=== PATIENT | male | born 1995 | race Caucasian/White ===

== ENCOUNTER 2022-02-08 18:15 | Inpatient (IN) | payer BC, OTHER, SELFPAY ==
--- NOTE | ~2022-02-08 | US_ITS ---
EXAMINATION: US abdomen limited DATE: 02/10/2022 13:15 INDICATION: Abnormal liver function tests. TECHNIQUE: Multiple grayscale and Doppler ultrasound images of the abdomen were obtained. COMPARISON: CT abdomen and pelvis 02/08/2022 FINDINGS: The pancreas is obscured by bowel gas. The liver is normal without focal lesion. No liver s urface nodularity. The gallbladder is normal in size. No gallstones or gallbladder wall thickening. T here was no sonographic Raymond sign. The common duct is normal and measures 3 mm. IMPRESSION: 1. Normal right upper quadrant ultrasound. Reviewed, dictated and finalized at location A.
--- NOTE | ~2022-02-08 | CT_ITS ---
EXAMINATION: CT abdomen pelvis w con DATE: 02/08/2022 20:25 INDICATION: right lower abdominal pain TECHNIQUE: Computed tomography (CT) of the abdomen and pelvis was performed with 100 mL Omnipaque-350 intravenous contrast. Automated exposure control and iterative reconstruction technique were employe d. The dose-length product was 528.65 mGy-cm. COMPARISON: None. FINDINGS: Lower thorax: Unremarkable Liver: Normal. Biliary/Gallbladder: Gallbladder is normal. No bile duct dilation. Pancreas: No mass or duct dilation. Spleen: Normal. Adrenals:No mass. Kidneys: No suspicious mass GI tract: No small or large bowel dilation. 1.5 cm saccular structure extending off the distal ileum, just proximal to the ileocecal valve, with significant surrounding inflammatory change and adjacent bubbles of gas (microperforation). Multiple adjacent subcentimeter right lower quadrant lymph nodes. Normal appendix. Mesentery/Peritoneum: No ascites, mass, or free air. Retroperitoneum: No mass. Pelvis: Pelvic organs are within normal limits. Soft Tissues: Soft tissues and body wall unremarkable. Bones: No acute osseous finding. IMPRESSION: Small bowel diverticulitis with evidence of contained perforation. Reviewed, dictated and finalized at location K.
[2022-02-08 18:28] VITALS: BP 147/92; PULSE 130; RESP 18; TEMP 36.9; O2SAT 100
--- NOTE | 2022-02-08 19:10 | ED.ABDPAIN ---
HPI - Abdominal Pain General Chief Complaint: Abdominal Pain Stated Complaint: RLQ pain Time Seen by Provider: 02/08/22 18:53 Source: patient and RN notes reviewed Mode of arrival: ambulatory Limitations: no limitations History of Present Illness HPI narrative: This is a 36 year old male who presents for evaluation of right lower abdominal pain. He developed mid abdominal pain this morning and it has been migrating to right lower abdomen throughout the day. He has associated nausea and anorexia. He also reports low grade temperature of 99 F today. He denies dysuria, hematuria, scrotal pain or swelling. He has not taken any medication for his pain, and it rates pain 8/10. MD elicited complaint: abdominal pain Pain Consistency: constant Location: RLQ Severity: severe Relieving factors: nothing Associated symptoms: nausea Related Data Allergies Allergy/AdvReac Type Severity Reaction Status Date / Time No Known Allergies Allergy Verified 02/08/22 19:14 Review of Systems Review of Systems: All systems reviewed & are unremarkable except as noted in HPI and below Constitutional: Constitutional: Denies chills, Denies fatigue and Denies fever(s) ENT: Denies nasal congestion and Denies sore throat Cardiovascular: Cardiovascular: Denies chest pain Gastrointestinal: Gastrointestinal: Reports abdominal pain, Denies bloating, Reports nausea and Denies vomiting Genitourinary: Genitourinary: Denies hematuria PMFSH Past Medical History Medical History (Updated 02/08/22 @ 21:48 by Debra Everett MD) SVT (supraventricular tachycardia) Surgical History Surgical History (Updated 02/08/22 @ 19:10 by Debra Everett MD) History of cardiac radiofrequency ablation Social History Social History (Updated 02/08/22 @ 19:10 by Debra Everett MD) Tobacco type: e-cigarettes/vaping Exam Const: General: no acute distress and alert Nutritional Appearance: well nourished Orientation/consciousness: patient oriented x3 HENMT: Head: normal to inspection Eyes: EOM: EOMs intact bilaterally Chest: Chest palpation & inspection: normal inspection of the chest Resp: Effort & Inspection: normal respiratory effort Auscultation: clear to auscultation bilaterally Cardio: Rate: regular rate Rhythm: regular rhythm Heart sounds: no murmurs GI: GI Palp: Yes Soft to palpation, Yes Tenderness to palpation present (GI) (RLQ, + rovsing), No Guarding due to palpation present (GI) and No Rigid due to palpation Auscultation: normal bowel sounds Back/Spine/Pelvis: Back: no CVA tenderness Skin: General skin exam: normal color Rashes: no rashes Wounds: no wounds Neuro: General: patient oriented x3, moves all extremities and CN's II-XI intact bilaterally Cranial nerves: Yes Nystagmus not present Extrem: General: normal to inspection Psych: Mental Status: mental status grossly normal Affect: normal affect Attitude: cooperative Course Reevaluation(s) Reevaluation #1: I have discussed findings with patient and the plan to admit for IV antibiotics with surgical consult. Date: 02/08/22 Time: 21:47 Consultations Consultation #1: I discussed case with Dr. Pickard and he agrees to consult on patient. Date: 02/08/22 Time: 20:48 Consultation #2: I discussed case with DR. Young and she accepts patient to medical service. Date: 02/08/22 Time: 20:50 Vital Signs Vital signs: Vital Signs Temperature 98.4 F 02/08/22 18:28 Pulse Rate 130 H 02/08/22 18:28 Respiratory Rate 18 02/08/22 18:28 Blood Pressure 147/92 H 02/08/22 18:28 Pulse Oximetry 100 02/08/22 18:28 Oxygen Delivery Room Air 02/08/22 18:28 Temperature 98.4 F 02/08/22 18:28 Pulse Rate 116 H 02/08/22 21:23 Respiratory Rate 18 02/08/22 21:23 Blood Pressure 132/70 02/08/22 21:23 Pulse Oximetry 98 02/08/22 21:23 Oxygen Delivery Room Air 02/08/22 18:28 MDM - Abdominal Pain Lab Data Result diagrams: 02/08
[2022-02-08] MEDS: MORPHINE SULFATE (*CRX) 4 MG/ML INJ IV PUSH (19:15)
[2022-02-08] MEDS: ONDANSETRON INJ 4 MG/2 ML VIAL IV PUSH (19:15)
[2022-02-08] MEDS: LACTATED RINGERS 1,000 ML 999 ML IV CONT (19:15)
[2022-02-08 19:29] LABS: Basophils Percent Auto 0.1 % (0.2-1.2); Eosinophils Percent Auto 0.1 % (0-4.4); Hematocrit 48.7 % (42.0-52.0); Hemoglobin 16.6 g/dL (14.0-18.0); Immature Granulocyte Absolute 0.06 K/mm3 (0.00-0.031); Immature Granulocyte Percent A 0.4 % (0-0.5); Lymphocytes Absolute Auto 1.13 K/mm3 (0.9-3.2); Lymphocytes Percent Auto 7.1 % (18.3-44.2); Mean Corpuscular HGB Conc 34.1 g/dl (32-36); Mean Corpuscular Hemoglobin 30.2 pg (26-34); Mean Corpuscular Volume 88.5 fl (80-100); Mean Platelet Volume 9.2 fl (7.4-10.4); Monocytes Absolute Auto 1.1 K/mm3 (0.1-0.6); Monocytes Percent Auto 6.6 % (2.6-8.5); Neutrophils Absolute Auto 13.7 K/mm3 (1.3-6.7); Neutrophils Percent Auto 85.7 % (45.5-73.1); Platelet Count Result 233 k/mm3 (150-375); Red Cell Distribution Width 12.3 % (11.5-14.5)
[2022-02-08 19:38] LABS: Alanine Aminotransferase 124 U/L (6-50); Albumin Level 5.3 g/dL (3.5-5.1); Alkaline Phosphatase 120 U/L (38-126); Anion Gap 13 mmol/L (8-16); Aspartate Amino Transferase 381 U/L (17-59); Bilirubin,Total 0.8 mg/dL (0.2-1.3); Blood Urea Nitrogen 10 mg/dL (9-20); Calcium 9.6 mg/dL (8.4-10.2); Carbon Dioxide 27 mmol/L (22-30); Chloride 99 mmol/L (98-107); Estimated CRCL calculation 90 ml/min; Estimated Glomerular Filt Rate > 60; Glucose 102 mg/dL (65-110); Lipase 23 U/L (23-300); Potassium 3.9 mmol/L (3.4-5.0); Sodium 139 mmol/L (137-145)
[2022-02-08 19:56] LABS: Add Urine Microscopic? YES; Appearance Urine Clear (Clear); Bilirubin Urine Negative (Negative); Blood Urine 3+ (Negative); Color Urine Yellow (Yellow); Glucose Urine UA Negative (Negative); Ketones Urine 2+ mg/dL (Negative); Leukocyte Esterase Ur Negative LEU/UL (Negative); Mucus Urine Rare /lpf; Nitrate Urine Negative (Negative); Protein Urine 1+ mg/dL (Negative); RBC Urine 0-2 /hpf (0-2); Specific Grav Ur 1.024 (1.001-1.035); Squamous Epithelial Cell Urine Rare /hpf (Few); Urobilinogen Urine Negative mg/dL (<2.0); WBC Urine 0-3 /hpf
--- NOTE | 2022-02-08 20:51 | PM.IMHP ---
H&P: HPI History of Present Illness Date/Time: 02/08/22 20:51 Chief Complaint: abdominal pain Narrative: 26-year-old male with no significant past medical history presents to the emergency room for sudden onset of abdominal pain localized to the right lower quadrant with radiation to left lower quadrant preliminary workup significant for CT of abdomen and pelvis: MPRESSION: Small bowel diverticulitis with evidence of contained perforation. patient had been his usual state of health up until this point denies any night sweats, fevers, rigors, chills. Patient admitted for further evaluation management and treatment. Review of Systems Review of Systems: Abdominal pain Constitutional: Constitutional: Denies chills, Denies fever(s), Denies malaise, Denies night sweats, Reports poor appetite and Denies weakness Eyes: Eyes: Denies change in vision ENT: Denies dysphagia, Denies vertigo, Denies dizziness and Denies odynophagia Cardiovascular: Cardiovascular: Denies chest pain, Denies syncope, Denies irregular heart rhythm, Denies lightheadedness, Denies palpitations and Denies dyspnea on exertion Respiratory: Respiratory: Denies chest congestion, Denies cough, Denies pain on inspiration and Denies dyspnea Gastrointestinal: Gastrointestinal: Reports abdominal pain, Denies dyspepsia, Denies heartburn, Denies diarrhea, Reports nausea and Denies vomiting Genitourinary: Genitourinary: Denies dysuria Musculoskeletal: Musculoskeletal: Denies myalgias and Denies joint swelling Integumentary/Breasts: Skin/Breast: Denies rash Neurologic: Denies vertigo, Denies dizziness, Denies focal weakness and Denies Sensory deficit (Neuro) Psychiatric: Psychiatric: Reports no additional psychiatric complaints and Reports as per HPI Endocrine: Endocrine: Denies cold intolerance, Denies flushing, Denies heat intolerance, Denies polyphagia, Denies polydipsia and Denies palpitations Hematologic/Lymphatic: Hematologic/Lymphatic: Reports no additional hematologic/lymphatic complaints and Reports as per HPI Allergic/Immunologic: Allergic/Immunologic: Reports no additional allergic/immunologic complaints and Reports as per HPI PMFSH Past Medical History Medical History (Updated 02/09/22 @ 14:56 by LOI López) SVT (supraventricular tachycardia) Surgical History Surgical History (Updated 02/08/22 @ 19:10 by Debra Everett MD) History of cardiac radiofrequency ablation Family History Family History (Updated 02/09/22 @ 00:05 by Wood Schuster RN) Other Breast cancer Mother Breast cancer genetic susceptibility Social History Social History (Updated 02/08/22 @ 19:10 by Debra Everett MD) Smoking status: Current every day smoker Tobacco type: e-cigarettes/vaping Alcohol intake: current Drinks per week: 1 Substance use: current Substance use type: other Other substance usage details: Nicotine Vape Spiritual care concerns: No Meds Home Medications and Allergies Home Medications Medication Instructions Recorded Confirmed Type amoxicillin 875 mg-potassium 1 tablet PO Q12H #20 tabs 02/11/22 Rx clavulanate 125 mg tablet Allergies Allergy/AdvReac Type Severity Reaction Status Date / Time No Known Allergies Allergy Verified 02/08/22 23:45 Vital Signs Vital Signs - 24 hr 02/08/22 18:28 Temperature 98.4 F Pulse Rate 130 H Respiratory Rate 18 Blood Pressure 147/92 H Pulse Oximetry 100 Oxygen Delivery Room Air Exam Narrative: patient laying in a stretcher Const: General: cooperative, comfortable, no acute distress, well developed, alert, awake, average body habitus and other ( well-appearing) Nutritional Appearance: average body habitus Orientation/consciousness: patient oriented x3 HENMT: Head: normal to inspection, normocephalic and atraumatic Ears: hearing grossly normal bilaterally Face/Nose/Sinus: normal facial exam Face and sinus: normal facia
[2022-02-08] MEDS: SODIUM CHLORIDE 0.9% IV 1,000 ML 999 ML IV CONT (21:20)
[2022-02-08] MEDS: SODIUM CHLORIDE 0.9% IV 500 ML 999 ML IV CONT (21:20)
[2022-02-08 21:23] VITALS: BP 132/70; PULSE 116; RESP 18; O2SAT 98
--- NOTE | 2022-02-08 22:52 | ADMGEN ---
This patient, Canon Axel Matson, was admitted to [facility] Surg Room 312-01. Patient/family oriented to hospital policies and general routines including ID bracelet, bed and alarms, visiting hours, pain management, procedures, bathroom and other care routines, personal items, smoking policy, room service/diet, and visiting hours. Information on how to activate the Rapid Response Team has been discussed. Patient/Family are encouraged to report perceived risks to care and to ask questions if they do not understand what they are told or what they should do.
--- NOTE | 2022-02-08 22:59 | PC.NURSE ---
Patient arrived onto 3 Med-Surg floor, 22:52, 02/08/2022
[2022-02-08 23:00] VITALS: BP 137/74; PULSE 124; RESP 14; TEMP 37.6; O2SAT 99
[2022-02-08] MEDS: SODIUM CHLORIDE 0.9% IV 1,000 ML 125 ML IV CONT (23:00)
--- NOTE | 2022-02-09 02:13 | PC.NURSE ---
This RN has personally reviewed RN-License Pending Wood Schuster's charting and will be reviewing until the end of this shift.
[2022-02-09] MEDS: MORPHINE SULFATE (*CRX) 4 MG/ML INJ IV PUSH ×2 (03:56→12:37)
[2022-02-09] MEDS: SODIUM CHLORIDE 0.9% IV 1,000 ML 125 ML IV CONT ×3 (05:53→23:45)
[2022-02-09 06:00] VITALS: BP 107/55; PULSE 117; RESP 14; TEMP 37.4; O2SAT 95
[2022-02-09 07:34] LABS: Alanine Aminotransferase 85 U/L (6-50); Albumin Level 3.7 g/dL (3.5-5.1); Alkaline Phosphatase 72 U/L (38-126); Anion Gap 10 mmol/L (8-16); Aspartate Amino Transferase 233 U/L (17-59); Basophils Percent Auto 0.1 % (0.2-1.2); Blood Urea Nitrogen 7 mg/dL (9-20); Calcium 8.3 mg/dL (8.4-10.2); Carbon Dioxide 25 mmol/L (22-30); Chloride 102 mmol/L (98-107); Eosinophils Percent Auto 0.1 % (0-4.4); Estimated CRCL calculation 90 ml/min; Estimated Glomerular Filt Rate > 60; Glucose 95 mg/dL (65-110); Hematocrit 38.8 % (42.0-52.0); Hemoglobin 13.4 g/dL (14.0-18.0); Immature Granulocyte Absolute 0.07 K/mm3 (0.00-0.031); Immature Granulocyte Percent A 0.4 % (0-0.5); Lymphocytes Absolute Auto 1.44 K/mm3 (0.9-3.2); Lymphocytes Percent Auto 8.4 % (18.3-44.2); Mean Corpuscular HGB Conc 34.5 g/dl (32-36); Mean Corpuscular Hemoglobin 30.4 pg (26-34); Mean Platelet Volume 9.4 fl (7.4-10.4); Monocytes Absolute Auto 1.2 K/mm3 (0.1-0.6); Monocytes Percent Auto 6.8 % (2.6-8.5); Neutrophils Absolute Auto 14.4 K/mm3 (1.3-6.7); Neutrophils Percent Auto 84.2 % (45.5-73.1); Platelet Count Result 179 k/mm3 (150-375); Potassium 3.6 mmol/L (3.4-5.0); Red Blood Count 4.41 M/mm3 (4.6-6.20); Sodium 137 mmol/L (137-145); White Blood Count 17.1 K/mm3 (4.5-10.0)
--- NOTE | 2022-02-09 12:15 | PM.IMPN ---
Progress Note: A&P Assessment and Plan (1) Diverticulitis of small intestine with perforation: Qualifiers: Diverticulitis bleeding: without bleeding Qualified Code(s): K57.00 - Diverticulitis of small intestine with perforation and abscess without bleeding Code(s): K57.00 - Diverticulitis of small intestine with perforation and abscess without bleeding Status: Acute Assessment and Plan: CT of the abdomen pelvis shows small-bowel diverticulitis with contained perforation general surgery has been consulted NPO for now IV fluids for hydration pain medications antiemetics abdominal x-ray in the a.m. continue IV Zosyn white blood cell count 17.1 today continue to trend labs (2) Transaminitis: Code(s): R74.01 - Elevation of levels of liver transaminase levels Status: Acute Assessment and Plan: AST ALT 233/85 hep panel in the morning continue to trend consider right upper quadrant ultrasound probably related to the infectious process (3) Sepsis: Code(s): A41.9 - Sepsis, unspecified organism Status: Acute Assessment and Plan: patient meets sepsis criteria with fever, leukocytosis, tachycardia and source of infection lactic acid 1 source of infection diverticulitis blood cultures pending CT of the abdomen pelvis shows diverticulitis with contained perforation white blood cell count 17.1 continue IV Zosyn trend labs adjust therapy as indicated 2500 mL of fluid given in the ED Time Spent With Patient Time with patient: Greater than 35 minutes Subjective Date/time seen: 02/09/221214 Interval history: 02/09/221214 Patient stated that he has been doing okay today. He does still have pain is 6-7 lower right quadrant. He also stated that he does have more pain with palpitation however he does denies any nausea, vomiting. He also denies any issues with urination. He denies any chest pain, shortness of breath, nausea, vomiting, diarrhea, constipation, weakness or fatigue. He does state that he has had some chills and sweats. Review of Systems Review of Systems: All systems reviewed & are unremarkable except as noted in HPI and below Exam Const: General: cooperative, no acute distress, well developed, alert, awake, uncomfortable and well nourished Nutritional Appearance: well nourished Orientation/consciousness: patient oriented x3 Limitations: no limitations HENMT: Head: normal to inspection Ears: hearing grossly normal bilaterally Face/Nose/Sinus: Normal external nose present Mouth: Yes Normal oral and palatal mucosa present, Yes lip normal and Yes tongue normal Teeth and gingiva: abnormal tooth and associated gingiva and poor dentition Eyes: General: appearance normal, both eyes and all related structures Neck: Neck: normal visual inspection, full ROM, trachea midline and supple Chest: Chest palpation & inspection: normal inspection of the chest Resp: Effort & Inspection: normal respiratory effort and able to speak in complete sentences Auscultation: clear to auscultation bilaterally Cardio: Jugular venous distension: no JVD Rate: regular rate Rhythm: regular rhythm Heart sounds: S1 normal heart sound present and S2 normal heart sound present Peripheral pulses: Peripheral pulses 2+ throughout GI: Inspection: normal to inspection GI Palp: Yes Soft to palpation and Yes Tenderness to palpation present (GI) Auscultation: normal bowel sounds Skin: General skin exam: normal color and no rashes or lesions noted Lesions: no lesions Rashes: no rashes Trauma: no lacerations or abrasions Wounds: no wounds Hair: normal Nails: normal Neuro: General: patient oriented x3, moves all extremities and Normal light touch and pain sensation Speech: normal speech Gait exam (Neuro): Normal gait present Extrem: General: normal to inspection Right upper extremity: norm
--- NOTE | 2022-02-09 13:40 | PM.CNGS ---
Assessment and Plan Assessment and plan (1) Diverticulitis of small intestine with perforation: Qualifiers: Diverticulitis bleeding: without bleeding Qualified Code(s): K57.00 - Diverticulitis of small intestine with perforation and abscess without bleeding Code(s): K57.00 - Diverticulitis of small intestine with perforation and abscess without bleeding Status: Acute Assessment and Plan: I have reviewed the CT and discussed the findings with the patient. He has evidence small bowel diverticulitis right near the ileocecal valve which does show evidence of micro perforation with surrounding inflammatory changes. He is currently stable and does not require emergent surgery, but I did discuss with him that if he were to require surgery this would likely result in an ileocecectomy given the close proximity to the ileocecal valve. Will continue bowel rest and IV Zosyn at this time , and will monitor with serial abdominal exams. Once pain begins resolving, clear liquid diet can be resumed and he will be slowly advanced as tolerated. (2) Sepsis: Code(s): A41.9 - Sepsis, unspecified organism Status: Acute Assessment and Plan: Elevated white blood count with tachycardia and low-grade fever on admission. (3) Elevated liver enzymes: Code(s): R74.8 - Abnormal levels of other serum enzymes Status: Acute Assessment and Plan: likely related to ongoing infection. Will repeat CMP tomorrow. History of Present Illness Consult details Consult date: 02/09/22 Reason for consult: other (Small-bowel diverticulitis) Narrative: this is a 26-year-old man who I am asked to see for small-bowel diverticulitis. He presented to the emergency department yesterday with right lower quadrant tenderness. He states that his pain started in the lower abdomen yesterday morning and eventually migrated to the right lower quadrant. He did feel slightly feverish yesterday and his max temperature was 37.6? C after admission. He denies any fevers today. He denies any change in bowel habits leading up to this. He has never experienced pains like this in the past. He reports eating white check and chili the night before, but nothing seemed unusual with the food that he ate. He reports no other recent ill contacts and no family history of inflammatory bowel disease or bowel cancers. CT in the emergency department showed evidence of small bowel diverticulitis with contained perforation. This was noted to be just proximal to the ileocecal valve. He was admitted to the hospital for IV antibiotics and further treatment. Review of Systems Review of Systems: All systems reviewed & are unremarkable except as noted in HPI and below Constitutional: Constitutional: Reports fever(s) Eyes: Eyes: Denies change in vision ENT: Denies hearing loss, Denies neck pain and Denies sore throat Cardiovascular: Cardiovascular: Denies chest pain and Denies dyspnea Respiratory: Respiratory: Denies cough, Denies dyspnea and Denies wheezing Gastrointestinal: Gastrointestinal: Reports as per HPI Genitourinary: Genitourinary: Denies hematuria and Denies dysuria Musculoskeletal: Musculoskeletal: Denies arthralgias, Denies joint swelling and Denies neck pain Allergic/Immunologic: Allergic/Immunologic: Denies wheezing [facility] Past Medical History Medical History (Updated 02/09/22 @ 13:50 by Himanshu Pickard DO) SVT (supraventricular tachycardia) Surgical History Surgical History (Updated 02/08/22 @ 19:10 by Debra Everett MD) History of cardiac radiofrequency ablation Family History Family History (Updated 02/09/22 @ 00:05 by Wood Schuster, RNLP) Other Breast cancer Mother Breast cancer genetic susceptibility Social History Social History (Updated 02/08/22 @ 19:10 by Debra Everett MD) Smoking status: Current every day smoker Tobacco type: e-cigarettes/vaping Alcohol intake: curren
[2022-02-09 14:00] VITALS: BP 119/74; PULSE 90; RESP 20; TEMP 36.8; O2SAT 97
[2022-02-09 22:00] VITALS: BP 117/79; PULSE 101; RESP 16; TEMP 37.2; O2SAT 100
[2022-02-10 06:00] VITALS: BP 119/76; PULSE 97; RESP 16; TEMP 36.8; O2SAT 99
[2022-02-10 06:11] LABS: Hematocrit 36.3 % (42.0-52.0); Hemoglobin 12.4 g/dL (14.0-18.0); Mean Corpuscular HGB Conc 34.2 g/dl (32-36); Mean Corpuscular Hemoglobin 29.6 pg (26-34); Mean Corpuscular Volume 86.6 fl (80-100); Mean Platelet Volume 9.1 fl (7.4-10.4); Platelet Count Result 182 k/mm3 (150-375); Red Blood Count 4.19 M/mm3 (4.6-6.20); Red Cell Distribution Width 11.9 % (11.5-14.5); White Blood Count 10.4 K/mm3 (4.5-10.0)
[2022-02-10 06:25] LABS: Alanine Aminotransferase 95 U/L (6-50); Albumin Level 3.7 g/dL (3.5-5.1); Alkaline Phosphatase 80 U/L (38-126); Anion Gap 10 mmol/L (8-16); Aspartate Amino Transferase 239 U/L (17-59); Bilirubin,Total 1.1 mg/dL (0.2-1.3); Blood Urea Nitrogen 8 mg/dL (9-20); Calcium 8.2 mg/dL (8.4-10.2); Carbon Dioxide 22 mmol/L (22-30); Chloride 102 mmol/L (98-107); Estimated CRCL calculation 90 ml/min; Estimated Glomerular Filt Rate > 60; Glucose 73 mg/dL (65-110); Magnesium 1.9 mg/dL (1.6-2.3); Potassium 3.9 mmol/L (3.4-5.0); Sodium 134 mmol/L (137-145)
[2022-02-10 07:10] LABS: Hepatitis B Surface Antigen Negative (Negative)
[2022-02-10 07:12] LABS: HAV RESULT Negative (Negative); Hepatitis B Core IgM Result Negative (Negative)
[2022-02-10 07:25] LABS: Hepatitis C Virus Antibody Negative (Negative)
[2022-02-10] MEDS: SODIUM CHLORIDE 0.9% IV 1,000 ML 125 ML IV CONT (08:52)
--- NOTE | 2022-02-10 11:30 | P.PNIM_ITS ---
Progress Note: A&P Assessment and Plan (1) Diverticulitis of small intestine with perforation: Qualifiers: Diverticulitis bleeding: without bleeding Qualified Code(s): K57.00 - Diverticulitis of small intestine with perforation and abscess without bleeding Code(s): K57.00 - Diverticulitis of small intestine with perforation and abscess without bleeding Status: Acute Assessment and Plan: * CT of the abdomen pelvis shows small-bowel diverticulitis with contained perforation * general surgery has been consulted * NPO for now * IV fluids for hydration * pain medications * antiemetics * abdominal x-ray in the a.m. * continue IV Zosyn * white blood cell count 17.1 upon admission, trending down, currently 10.4 * continue to trend labs (2) Transaminitis: Code(s): R74.01 - Elevation of levels of liver transaminase levels Status: Acute Assessment and Plan: * AST ALT trending up currently 239/95 * hep panel negative * continue to trend * Right upper quadrant ultrasound ordered * probably related to the infectious process (3) Sepsis: Code(s): A41.9 - Sepsis, unspecified organism Status: Acute Assessment and Plan: * patient meets sepsis criteria with fever, leukocytosis, tachycardia and source of infection * lactic acid 1 * source of infection diverticulitis * blood cultures pending * CT of the abdomen pelvis shows diverticulitis with contained perforation * white blood cell count 17.1, trending down currently 10.4 * continue IV Zosyn * trend labs * adjust therapy as indicated * 2500 mL of fluid given in the ED Time Spent With Patient Time with patient: Greater than 35 minutes Subjective Date/time seen: 02/10/22 1130 Interval history: 02/10/22 1130 Patient stated that he is feeling better today and that he was feeling hungry. He does still endorse some pain, however, he stated that it isnt as bad as it was yesterday. He also stated that he thinks he might of had a small fever last night, however, he stated that he was fine today. He also stated that he can m ove around and does not have any sharp pain. He denies any chest pain, shortness of breath, nausea, vomiting, diarrhea, or constipation. 02/09/22 1215 Patient stated that he has been doing okay today. He does still have pain is 6-7 lower right quadrant. He also stated that he does have more pain with palpitation however he does denies any nausea, vomiting. He also denies any issues with urination. He denies any chest pain, shortness of breath, nausea, vomiting, diarrhea, constipation, weakness or fatigue. He does state that he has had some chills and sweats. Review of Systems Review of Systems: All systems reviewed & are unremarkable except as noted in HPI and below Exam Const: General: cooperative, no acute distress, well developed, alert, awake, uncomfortable and well nourished Nutritional Appearance: well nourished Orientation/consciousness: patient oriented x3 Limitations: no limitations HENMT: Head: normal to inspection Ears: hearing grossly normal bilaterally Face/Nose/Sinus: Normal external nose present Mouth: Yes Normal oral and palatal mucosa present, Yes lip normal and Yes tongue normal Teeth and gingiva: abnormal tooth and associated gingiva and poor dentition Eyes: General: appearance normal, both eyes and all related structures Neck: Neck:
--- NOTE | 2022-02-10 11:30 | PM.IMPN ---
Progress Note: A&P Assessment and Plan (1) Diverticulitis of small intestine with perforation: Qualifiers: Diverticulitis bleeding: without bleeding Qualified Code(s): K57.00 - Diverticulitis of small intestine with perforation and abscess without bleeding Code(s): K57.00 - Diverticulitis of small intestine with perforation and abscess without bleeding Status: Acute Assessment and Plan: CT of the abdomen pelvis shows small-bowel diverticulitis with contained perforation general surgery has been consulted NPO for now IV fluids for hydration pain medications antiemetics abdominal x-ray in the a.m. continue IV Zosyn white blood cell count 17.1 upon admission, trending down, currently 10.4 continue to trend labs (2) Transaminitis: Code(s): R74.01 - Elevation of levels of liver transaminase levels Status: Acute Assessment and Plan: AST ALT trending up currently 239/95 hep panel negative continue to trend Right upper quadrant ultrasound ordered probably related to the infectious process (3) Sepsis: Code(s): A41.9 - Sepsis, unspecified organism Status: Acute Assessment and Plan: patient meets sepsis criteria with fever, leukocytosis, tachycardia and source of infection lactic acid 1 source of infection diverticulitis blood cultures pending CT of the abdomen pelvis shows diverticulitis with contained perforation white blood cell count 17.1, trending down currently 10.4 continue IV Zosyn trend labs adjust therapy as indicated 2500 mL of fluid given in the ED Time Spent With Patient Time with patient: Greater than 35 minutes Subjective Date/time seen: 02/10/22 1130 Interval history: 02/10/22 1130 Patient stated that he is feeling better today and that he was feeling hungry. He does still endorse some pain, however, he stated that it isnt as bad as it was yesterday. He also stated that he thinks he might of had a small fever last night, however, he stated that he was fine today. He also stated that he can move around and does not have any sharp pain. He denies any chest pain, shortness of breath, nausea, vomiting, diarrhea, or constipation. 02/09/22 1215 Patient stated that he has been doing okay today. He does still have pain is 6-7 lower right quadrant. He also stated that he does have more pain with palpitation however he does denies any nausea, vomiting. He also denies any issues with urination. He denies any chest pain, shortness of breath, nausea, vomiting, diarrhea, constipation, weakness or fatigue. He does state that he has had some chills and sweats. Review of Systems Review of Systems: All systems reviewed & are unremarkable except as noted in HPI and below Exam Const: General: cooperative, no acute distress, well developed, alert, awake, uncomfortable and well nourished Nutritional Appearance: well nourished Orientation/consciousness: patient oriented x3 Limitations: no limitations HENMT: Head: normal to inspection Ears: hearing grossly normal bilaterally Face/Nose/Sinus: Normal external nose present Mouth: Yes Normal oral and palatal mucosa present, Yes lip normal and Yes tongue normal Teeth and gingiva: abnormal tooth and associated gingiva and poor dentition Eyes: General: appearance normal, both eyes and all related structures Neck: Neck: normal visual inspection, full ROM, trachea midline and supple Chest: Chest palpation & inspection: normal inspection of the chest Resp: Effort & Inspection: normal respiratory effort and able to speak in complete sentences Auscultation: clear to auscultation bilaterally Cardio: Jugular venous distension: no JVD Rate: regular rate Rhythm: regular rhythm Heart sounds: S1 normal heart sound present and S2 normal heart sound present Peripheral pulses: Peripheral pulses 2+ throughout GI: Inspection: nor
[2022-02-10 14:00] VITALS: BP 127/85; PULSE 88; RESP 14; TEMP 36.5; O2SAT 100
--- NOTE | 2022-02-10 16:55 | PM.PNGS ---
Progress Note: A&P Assessment and Plan (1) Diverticulitis of small intestine with perforation: Qualifiers: Diverticulitis bleeding: without bleeding Qualified Code(s): K57.00 - Diverticulitis of small intestine with perforation and abscess without bleeding Code(s): K57.00 - Diverticulitis of small intestine with perforation and abscess without bleeding Status: Acute Assessment and Plan: Clinically improving. White blood cell count down to 10,000, afebrile. Abdominal pain much improved today. Will start clear liquids Continue IV Zosyn Repeat labs tomorrow (2) Sepsis: Code(s): A41.9 - Sepsis, unspecified organism Status: Acute Assessment and Plan: Tachycardia improved, afebrile. WBC trending down. Continue IV abx. Blood cx NGTD. (3) Elevated liver enzymes: Code(s): R74.8 - Abnormal levels of other serum enzymes Status: Acute Assessment and Plan: Likely related to ongoing infection. Abdominal ultrasound negative. Continue to trend labs. Plan I have discussed the patient's case and plan of care with Dr. Pickard. Subjective Subjective Date/Time Seen: 02/10/22 13:55 Patient reports: no new complaints, feels better, pain is less, flatus, no bowel movement and afebrile Interval history: Patient seen and examined. Feeling much better today. His abdominal pain has improved significantly since yesterday. Denies any nausea or bloating. He is passing gas and feels like he could have a bowel movement today. No other complaints at this time. Review of Systems Review of Systems: All systems reviewed & are unremarkable except as noted in HPI and below Exam Const: General: alert; No acute distress Orientation/consciousness: patient oriented x3 GI: Inspection: non-distended GI Palp: Yes Soft to palpation, Yes Tenderness to palpation present (GI) (Mild tenderness along the lower abdomen), No Guarding due to palpation present (GI) and No Rebound tenderness present Auscultation: normal bowel sounds Objective Data Vital Signs Vital Signs: Vital Signs - 24 hr 02/09/22 22:00 02/10/22 06:00 02/10/22 08:45 Temperature 99.0 F 98.3 F Pulse Rate 101 H 97 Respiratory Rate 16 16 Blood Pressure 117/79 119/76 Pulse Oximetry 100 99 Oxygen Delivery Room Air Intake/Output Intake/Output: Intake & Output 02/07/22 02/08/22 02/09/22 02/10/22 23:59 23:59 23:59 23:59 Intake Total 2550 3150 1150 Output Total 1450 2500 Balance 2550 1700 -1350 Meds/Results Medications: Active Medications Generic Name Dose Route Start Last Admin Trade Name Freq PRN Reason Stop Dose Admin Piperacillin/Tazobactam/Dextrose 3.375 gm in 50 mls @ 100 mls/hr 02/09/22 06:00 02/10/22 12:47 Zosyn 3.375 Gm/D5w 50ml Pm IVPB Infused Q6H LOS Infusion Sodium Chloride 1,000 mls @ 125 mls/hr 02/08/22 21:00 02/10/22 16:37 Normal Saline Iv IV CONT Not Given .Q8H LOS Morphine Sulfate 4 mg 02/08/22 20:58 02/09/22 12:37 Morphine Sulfate (*Crx) 4 Mg/Ml Inj IV PUSH 4 mg Q2H PRN Administration Pain Rated 7-10 Ondansetron HCl 4 mg 02/08/22 20:58 Ondansetron Inj 4 Mg/2 Ml Vial IV PUSH Q4H PRN Nausea Radiology Results: ITS Impressions Abdomen/Pelvis CT 02/08/22 20:28 IMPRESSION: Small bowel diverticulitis with evidence of contained perforation. Abdomen Ultrasound 02/10/22 13:16 IMPRESSION: 1. Normal right upper quadrant ultrasound. Labs Labs: Laboratory Results - last 24 hr 02/10/22 02/10/22 02/10/22 05:46 05:46 05:46 WBC 10.4 H RBC 4.19 L Hgb 12.4 L Hct 36.3 L MCV 86.6 MCH 29.6 MCHC 34.2 RDW 11.9 Plt Count 182 MPV 9.1 Sodium 134 L Potassium 3.9 Chloride 102 Carbon Dioxide 22 Anion Gap 10 BUN 8 L Creatinine 1.10 Estim Creat Clear Calc 90 Estimated GFR > 60 Glucose 73 Calcium 8.2 L Magnesium 1.9 T
[2022-02-10 22:00] VITALS: BP 123/74; PULSE 84; RESP 12; TEMP 36.7; O2SAT 97
[2022-02-11 06:00] VITALS: BP 133/72; PULSE 86; RESP 12; TEMP 37.2; O2SAT 98
[2022-02-11 06:42] LABS: Basophils Percent Auto 0.2 % (0.2-1.2); Eosinophils Absolute Auto 0.1 K/mm3 (0-0.3); Eosinophils Percent Auto 1.1 % (0-4.4); Hematocrit 41.2 % (42.0-52.0); Hemoglobin 14.3 g/dL (14.0-18.0); Immature Granulocyte Absolute 0.03 K/mm3 (0.00-0.031); Immature Granulocyte Percent A 0.3 % (0-0.5); Lymphocytes Absolute Auto 1.32 K/mm3 (0.9-3.2); Lymphocytes Percent Auto 14.3 % (18.3-44.2); Mean Corpuscular HGB Conc 34.7 g/dl (32-36); Mean Corpuscular Volume 86.6 fl (80-100); Mean Platelet Volume 9.2 fl (7.4-10.4); Monocytes Absolute Auto 0.9 K/mm3 (0.1-0.6); Monocytes Percent Auto 9.5 % (2.6-8.5); Neutrophils Absolute Auto 6.9 K/mm3 (1.3-6.7); Neutrophils Percent Auto 74.6 % (45.5-73.1); Platelet Count Result 211 k/mm3 (150-375); Red Blood Count 4.76 M/mm3 (4.6-6.20); Red Cell Distribution Width 11.9 % (11.5-14.5); White Blood Count 9.2 K/mm3 (4.5-10.0)
[2022-02-11 06:57] LABS: Alanine Aminotransferase 112 U/L (6-50); Albumin Level 4.3 g/dL (3.5-5.1); Alkaline Phosphatase 84 U/L (38-126); Anion Gap 12 mmol/L (8-16); Aspartate Amino Transferase 221 U/L (17-59); Bilirubin,Total 1.1 mg/dL (0.2-1.3); Blood Urea Nitrogen 5 mg/dL (9-20); Carbon Dioxide 27 mmol/L (22-30); Chloride 101 mmol/L (98-107); Estimated CRCL calculation 90 ml/min; Estimated Glomerular Filt Rate > 60; Glucose 89 mg/dL (65-110); Magnesium 2.1 mg/dL (1.6-2.3); Potassium 3.9 mmol/L (3.4-5.0); Sodium 140 mmol/L (137-145)
[2022-02-11 07:57] VITALS: O2SAT 94
--- NOTE | 2022-02-11 10:58 | PM.PNGS ---
Progress Note: A&P Assessment and Plan (1) Diverticulitis of small intestine with perforation: Qualifiers: Diverticulitis bleeding: without bleeding Qualified Code(s): K57.00 - Diverticulitis of small intestine with perforation and abscess without bleeding Code(s): K57.00 - Diverticulitis of small intestine with perforation and abscess without bleeding Status: Acute Assessment and Plan: Continues to improve daily. Advance to a low-fiber diet Okay from our standpoint to discharge the patient later today and transition to oral antibiotics if he tolerates his diet. Continue low fiber diet. Follow-up with Dr. Pickard in 2 weeks. (2) Sepsis: Code(s): A41.9 - Sepsis, unspecified organism Status: Acute Assessment and Plan: Sepsis criteria met on admission. Tachycardia resolved and he is now afebrile. WBC count normal. Blood cx NGTD. See plan above. (3) Elevated liver enzymes: Code(s): R74.8 - Abnormal levels of other serum enzymes Status: Acute Assessment and Plan: Abdominal ultrasound negative. Hepatitis panel negative. Further workup can be done as an outpatient, could be related to acute illness. Plan I have discussed the patient's case and plan of care with Dr. Pickard. Subjective Subjective Date/Time Seen: 02/11/22 09:58 Patient reports: no new complaints, feels better, pain is less, tolerating liquids well, flatus, bowel movement (Loose stools) and afebrile Interval history: Reports feeling better again today. Denies any abdominal pain this morning. Feels he just has some slight discomfort with palpation in the lower abdomen, but this continues to improve. No nausea or vomiting. He has had 2 liquid stools since yesterday. Review of Systems Review of Systems: All systems reviewed & are unremarkable except as noted in HPI and below Exam Const: General: alert; No acute distress Orientation/consciousness: patient oriented x3 GI: Inspection: non-distended GI Palp: Yes Soft to palpation, No Tenderness to palpation present (GI), No Guarding due to palpation present (GI) and No Rebound tenderness present Auscultation: normal bowel sounds Objective Data Vital Signs Vital Signs: Vital Signs - 24 hr 02/10/22 14:00 02/10/22 22:00 02/11/22 06:00 Temperature 97.7 F 98.1 F 99.0 F Pulse Rate 88 84 86 Respiratory Rate 14 12 12 Blood Pressure 127/85 123/74 133/72 Pulse Oximetry 100 97 98 Oxygen Delivery 02/11/22 07:57 02/11/22 08:00 Temperature Pulse Rate Respiratory Rate Blood Pressure Pulse Oximetry 94 Oxygen Delivery Room Air Room Air Intake/Output Intake/Output: Intake & Output 02/08/22 02/09/22 02/10/22 02/11/22 23:59 23:59 23:59 23:59 Intake Total 2550 3150 1680 1190 Output Total 1450 2500 1800 Balance 2550 1700 -820 -610 Meds/Results Medications: Active Medications Generic Name Dose Route Start Last Admin Trade Name Freq PRN Reason Stop Dose Admin Acetaminophen 1,000 mg 02/10/22 16:59 Acetaminophen 500 Mg Tablet PO Q6H PRN Mild Pain (1-3) or Fever Piperacillin/Tazobactam/Dextrose 3.375 gm in 50 mls @ 100 mls/hr 02/09/22 06:00 02/11/22 05:59 Zosyn 3.375 Gm/D5w 50ml Pm IVPB Infused Q6H LOS Infusion Morphine Sulfate 4 mg 02/08/22 20:58 02/09/22 12:37 Morphine Sulfate (*Crx) 4 Mg/Ml Inj IV PUSH 4 mg Q2H PRN Administration Pain Rated 7-10 Ondansetron HCl 4 mg 02/08/22 20:58 Ondansetron Inj 4 Mg/2 Ml Vial IV PUSH Q4H PRN Nausea Radiology Results: ITS Impressions Abdomen/Pelvis CT 02/08/22 20:28 IMPRESSION: Small bowel diverticulitis with evidence of contained perforation. Abdomen Ultrasound 02/10/22 13:16 IMPRESSION: 1. Normal right upper quadrant ultrasound. Labs Labs: Laboratory Results - last 24 hr 02/11/22 02/11/22 05:58 05:58 WBC 9.2 RBC 4.76 Hgb 14.3 Hct 41.2 L MCV 86.6 MCH
--- NOTE | 2022-02-11 11:30 | P.DS_ITS ---
DS: Admitting Diagnosis Discharge Date 02/11/22 1130 Admitting Diagnosis Diverticulitis with contain perforation DS: Discharge Diagnosis Discharge Diagnosis (1) Diverticulitis of small intestine with perforation: Qualifiers: Diverticulitis bleeding: without bleeding Qualified Code(s): K57.00 - Diverticulitis of small intestine with perforation and abscess without bleeding Code(s): K57.00 - Diverticulitis of small intestine with perforation and abscess without bleeding Status: Acute Assessment and Plan: * CT of the abdomen pelvis shows small-bowel diverticulitis with contained perforation * general surgery has been consulted * NPO for now * IV fluids for hydration * pain medications * antiemetics * abdominal x-ray in the a.m. * continue IV Zosyn * white blood cell count 17.1 upon admission, trending down, currently 10.4 * continue to trend labs (2) Transaminitis: Code(s): R74.01 - Elevation of levels of liver transaminase levels Status: Acute Assessment and Plan: * AST ALT trending up currently 239/95 * hep panel negative * continue to trend * Right upper quadrant ultrasound ordered * probably related to the infectious process (3) Sepsis: Code(s): A41.9 - Sepsis, unspecified organism Status: Acute Assessment and Plan: * patient meets sepsis criteria with fever, leukocytosis, tachycardia and source of infection * lactic acid 1 * source of infection diverticulitis * blood cultures pending * CT of the abdomen pelvis shows diverticulitis with contained perforation * white blood cell count 17.1, trending down currently 10.4 * continue IV Zosyn * trend labs * adjust therapy as indicated * 2500 mL of fluid given in the ED DS: Summary Hospital Course Hospital Course: Patient is a 26-year-old male with past medical history of scoliosis who presented the ED with complaints of abdominal pain accompanied with nausea and vomiting. Upon arrival CT of the pelvis and abdomen showed small bowel diverticulitis with contained perforation. General surgery had been consulted and patient was made NPO. Antibiotics were added in the ED and white blood cell count was noted to be 17.1. Patient was also noted to have elevated liver e nzymes and did meet sepsis criteria. Currently white blood cell count is 9.2 and liver enzymes are trending down. Patient has been able to tolerate a low- fiber diet and will continue a low-fiber diet at discharge. Patient denies any current chest pain, shortness a breath, nausea, vomiting, diarrhea, constipation, weakness or fatigue. Patient is stable for discharge per labs and vital signs. Patient will need to continue with a low-fiber diet. Status at Discharge Functional status at discharge: independent ambulation Overall status at discharge: patient is progressing back to baseline Time Spent with Patient Time attestation: Total time spent providing and/or coordinating discharge services: 35 minutes Time spent: Greater than 30 minutes Specific discharge activities: Diagnostic testing, chart review, developing a treatment plan, education, care coordination documentation, physical exam, result review Exam Const: General: cooperative, no acute distress, well developed, alert, awake and well nourished Nutritional Appearance: well nourished Orientation/consciousness: patient oriented x3 Limitations: no limitations HENMT: Head: normal to inspection Ears:
--- NOTE | 2022-02-11 11:30 | PM.DS ---
DS: Admitting Diagnosis Discharge Date 02/11/22 1130 Admitting Diagnosis Diverticulitis with contain perforation DS: Discharge Diagnosis Discharge Diagnosis (1) Diverticulitis of small intestine with perforation: Qualifiers: Diverticulitis bleeding: without bleeding Qualified Code(s): K57.00 - Diverticulitis of small intestine with perforation and abscess without bleeding Code(s): K57.00 - Diverticulitis of small intestine with perforation and abscess without bleeding Status: Acute Assessment and Plan: CT of the abdomen pelvis shows small-bowel diverticulitis with contained perforation general surgery has been consulted NPO for now IV fluids for hydration pain medications antiemetics abdominal x-ray in the a.m. continue IV Zosyn white blood cell count 17.1 upon admission, trending down, currently 10.4 continue to trend labs (2) Transaminitis: Code(s): R74.01 - Elevation of levels of liver transaminase levels Status: Acute Assessment and Plan: AST ALT trending up currently 239/95 hep panel negative continue to trend Right upper quadrant ultrasound ordered probably related to the infectious process (3) Sepsis: Code(s): A41.9 - Sepsis, unspecified organism Status: Acute Assessment and Plan: patient meets sepsis criteria with fever, leukocytosis, tachycardia and source of infection lactic acid 1 source of infection diverticulitis blood cultures pending CT of the abdomen pelvis shows diverticulitis with contained perforation white blood cell count 17.1, trending down currently 10.4 continue IV Zosyn trend labs adjust therapy as indicated 2500 mL of fluid given in the ED DS: Summary Hospital Course Hospital Course: Patient is a 26-year-old male with past medical history of scoliosis who presented the ED with complaints of abdominal pain accompanied with nausea and vomiting. Upon arrival CT of the pelvis and abdomen showed small bowel diverticulitis with contained perforation. General surgery had been consulted and patient was made NPO. Antibiotics were added in the ED and white blood cell count was noted to be 17.1. Patient was also noted to have elevated liver enzymes and did meet sepsis criteria. Currently white blood cell count is 9.2 and liver enzymes are trending down. Patient has been able to tolerate a low-fiber diet and will continue a low-fiber diet at discharge. Patient denies any current chest pain, shortness a breath, nausea, vomiting, diarrhea, constipation, weakness or fatigue. Patient is stable for discharge per labs and vital signs. Patient will need to continue with a low-fiber diet. Status at Discharge Functional status at discharge: independent ambulation Overall status at discharge: patient is progressing back to baseline Time Spent with Patient Time attestation: Total time spent providing and/or coordinating discharge services: 35 minutes Time spent: Greater than 30 minutes Specific discharge activities: Diagnostic testing, chart review, developing a treatment plan, education, care coordination documentation, physical exam, result review Exam Const: General: cooperative, no acute distress, well developed, alert, awake and well nourished Nutritional Appearance: well nourished Orientation/consciousness: patient oriented x3 Limitations: no limitations HENMT: Head: normal to inspection Ears: hearing grossly normal bilaterally Face/Nose/Sinus: Normal external nose present Mouth: Yes Normal oral and palatal mucosa present, Yes lip normal and Yes tongue normal Teeth and gingiva: abnormal tooth and associated gingiva and poor dentition Eyes: General: appearance normal, both eyes and all related structures Neck: Neck: normal visual inspection, full ROM, trachea midline and supple Chest: Chest palpation & inspection: normal inspection of the chest
== END 2022-02-11 14:00 | disposition home or self-care (01) | DRG 872 ==
LOC: ANHED 20:07 → ANH3MEDSUR 21:27
PROVIDERS: Emergency Medicine; Surgery; Admitting Provider Internal Medicine; Emergency Provider General Practice; Visit Provider Nurse Practitioner
DX: A41.9 Sepsis, unspecified organism (principal); K57.00 Diverticulitis of small intestine with perforation and abscess without bleeding; R74.01 Elevation of levels of liver transaminase levels; R74.8 Abnormal levels of other serum enzymes; F17.290 Nicotine dependence, other tobacco product, uncomplicated; Z28.21 Immunization not carried out because of patient refusal
CPT/HCPCS: 36415; 74177; 76705; 80053; 80074; 81001; 83605; 83690; 83735; 85025; 85027; 87040; 96361; 96365; 96366; 96375; 96376; 99285; G0378; J2270; J2405; J2543; J7030; J7040; J7120; Q9967